=== PATIENT | female | born 1970 | race Caucasian/White ===

== ENCOUNTER 2019-11-19 09:47 | Outpatient (REF) | payer MEDICAID, SELFPAY ==
[2019-11-19 14:27] LABS: Microalbum/Creatinine Ratio Ur 8.4 ug/mg cr
[2019-11-19 14:44] LABS: Alanine Aminotransferase 18 U/L (0-31); Albumin Level 4.3 g/dL (3.5-5.0); Alkaline Phosphatase 120 U/L (39-117); Anion Gap 13 (12-20); Aspartate Amino Transferase 13 U/L (5-31); Blood Urea Nitrogen 13 mg/dL (9-16); Calcium 9.4 mg/dL (8.4-10.2); Carbon Dioxide 29 mmol/L (22-29); Chloride 100 mmol/L (96-108); Cholesterol 206 mg/dL; Estimated Glomerular Filt Rate > 60; Glucose Random 273 mg/dL (60-115); HDL Cholesterol 48 mg/dL; LDL Cholesterol Calculated 126 mg/dl; Potassium 4.2 mmol/l (3.3-5.1); Sodium 138 mmol/L (135-145); Total Protein 7.4 g/dL (6.5-8.0); Triglycerides 161 mg/dL
[2019-11-19 14:46] LABS: Free T4 (Free Thyroxine) 1.13 ng/dL (0.71-1.85); Thyroid Stimulating Hormone 0.56 mIU/mL (0.32-4.0); Vitamin D 25-OH Total 22.2 ng/mL (>30)
[2019-11-20 09:07] LABS: LDL Cholesterol Direct 130 mg/dL (<100)
[2019-11-20 21:26] LABS: DHEA Sulfate 116 mcg/dL (19-231); Sex Hormone Binding Globulin 38 nmol/L (17-124)
[2019-11-23 12:52] LABS: Testosterone, Free 1.1 pg/mL (0.1-6.4); Testosterone, Total 9 ng/dL (2-45)
== END 2019-11-19 09:48 | disposition home or self-care (01) ==
LOC: CF 09:47
PROVIDERS: PCP Internal Medicine; Referring Provider Internal Medicine; Visit Provider Internal Medicine
DX: E11.65 Type 2 diabetes mellitus with hyperglycemia (principal); Z79.4 Long term (current) use of insulin; E55.9 Vitamin D deficiency, unspecified; E78.5 Hyperlipidemia, unspecified; L65.9 Nonscarring hair loss, unspecified; I10 Essential (primary) hypertension
CPT/HCPCS: 80053; 80061; 82043; 82306; 82627; 82947; 83721; 84270; 84402; 84403; 84439; 84443; 99204

== ENCOUNTER → 2019-12-10 09:44 | Outpatient (BNVA) | payer MEDICAID, SELFPAY | PROVIDERS: PCP Internal Medicine; Referring Provider Internal Medicine; Visit Provider Dietitian, Registered | DX: Z76.89 Persons encountering health services in other specified circumstances (principal) ==

== ENCOUNTER → 2019-12-24 12:33 | Outpatient (BNVA) | payer MEDICAID, SELFPAY | PROVIDERS: Visit Provider Physician Assistant | DX: K21.9 Gastro-esophageal reflux disease without esophagitis (principal); R10.13 Epigastric pain; Z79.899 Other long term (current) drug therapy; Z83.71 Family history of colonic polyps | CPT/HCPCS: 99202 ==

== ENCOUNTER → 2020-01-15 09:45 | Outpatient (BNVA) | payer MEDICAID, SELFPAY | PROVIDERS: PCP Internal Medicine; Visit Provider Internal Medicine | DX: E11.65 Type 2 diabetes mellitus with hyperglycemia (principal); Z79.4 Long term (current) use of insulin; E78.5 Hyperlipidemia, unspecified; I10 Essential (primary) hypertension; E55.9 Vitamin D deficiency, unspecified; L65.9 Nonscarring hair loss, unspecified | CPT/HCPCS: 82947; 99212 ==

== ENCOUNTER 2020-01-16 10:18 | Day surgery (SDC) | payer MEDICAID, SELFPAY ==
--- NOTE | 2020-01-15 11:03 | HO.ANESPROP2 ---
HPI - Anesthesia Eval Consult details Narrative: 49yo F for Upper Endoscopy and Colonoscopy PMFSH Past Medical History Medical History (Updated 01/21/20 @ 10:29 by Halie Ribeiro, RD, LDN) Depression GERD (gastroesophageal reflux disease) HLD (hyperlipidemia) HTN (hypertension) T2DM (type 2 diabetes mellitus) Vitamin D deficiency Family History Family History Mother Heart disease Surgical History Surgical History Hx of cholecystectomy Hx of tubal ligation Social History Social History Smoking Status: Former smoker Advance Directives Date on File: 11/19/19 Meds Allergies Allergy/AdvReac Type Severity Reaction Status Date / Time No Known Drug Allergies Allergy Unknown None Verified 01/15/20 10:06 Environmental Allergy Unknown SNEEZING Uncoded 01/15/20 10:06 Home Medications Medication Instructions Recorded Confirmed Type cyclobenzaprine 5 mg tablet 5 mg PO BEDTIME 11/19/19 01/15/20 History gabapentin 100 mg capsule 100 mg PO BEDTIME 11/19/19 01/15/20 History insulin glargine 100 unit/mL (3 40 unit SUBCUT DAILY ml 11/19/19 01/15/20 History mL) subcutaneous pen lancets 28 gauge #100 ea 11/19/19 01/15/20 History omeprazole 20 mg capsule,delayed 20 mg PO DAILY 11/19/19 01/15/20 History release pen needle, diabetic 32 gauge x #50 ea 11/19/19 01/15/20 History 1/4 aspirin 81 mg tablet,delayed 81 mg PO DAILY 12/24/19 01/15/20 History release Exam Exam Date and Time: January 15, 2020 1103 Pertinent Lab Results Pertinent Lab Results: Laboratory Tests 09/07/19 11/19/19 18:28 11:57 WBC 9.4 Hgb 13.3 Hct 39.1 Plt Count 292 Sodium 138 Potassium 4.2 Chloride 100 Carbon Dioxide 29 BUN 13 Creatinine 0.71 Assessment and Plan Assessment Anesthesia Assessment: Chart Reviewed
[2020-01-16 10:51] VITALS: BMI 25.2
[2020-01-16 10:52] LABS: Glucose, Whole Blood 183 mg/dL (60-115)
[2020-01-16 11:07] VITALS: BP 122/78; PULSE 78; RESP 16; TEMP 36.2; O2SAT 99
[2020-01-16] MEDS: Lactated Ringers 1,000 ML 100 ML IVCONT (11:32)
--- NOTE | 2020-01-16 11:32 | PC.NURSE ---
explained deanne rubio with bilingual interpreter. bartolo well. output clear with some light sediment
--- NOTE | 2020-01-16 12:35 | HO.ANESPROP2 ---
[facility] Past Medical History Medical History (Updated 01/15/20 @ 11:04 by Guillermina Dunlap) Depression GERD (gastroesophageal reflux disease) HLD (hyperlipidemia) HTN (hypertension) T2DM (type 2 diabetes mellitus) Vitamin D deficiency Family History Family History Mother Heart disease Surgical History Surgical History Hx of cholecystectomy Hx of tubal ligation Social History Social History Smoking Status: Former smoker Smoked in Last 30 Days: No Use of substances other than those prescribed or required for medical reasons: No Advance Directives: No Advance Directives Information Provided: Yes Advance Directives Date on File: 11/19/19 Recently lost weight without trying: No Meds Allergies Allergy/AdvReac Type Severity Reaction Status Date / Time No Known Drug Allergies Allergy Unknown None Verified 01/15/20 10:06 Environmental Allergy Unknown SNEEZING Uncoded 01/15/20 10:06 Home Medications Medication Instructions Recorded Confirmed Type cyclobenzaprine 5 mg tablet 5 mg PO BEDTIME 11/19/19 01/15/20 History gabapentin 100 mg capsule 100 mg PO BEDTIME 11/19/19 01/15/20 History insulin glargine 100 unit/mL (3 40 unit SUBCUT DAILY ml 11/19/19 01/15/20 History mL) subcutaneous pen lancets 28 gauge #100 ea 11/19/19 01/15/20 History omeprazole 20 mg capsule,delayed 20 mg PO DAILY 11/19/19 01/15/20 History release pen needle, diabetic 32 gauge x #50 ea 11/19/19 01/15/20 History 1/4 aspirin 81 mg tablet,delayed 81 mg PO DAILY 12/24/19 01/15/20 History release Exam Exam Date and Time: January 16, 2020 1235 Height,Weight and Vital Signs: Height 4 ft 10 in Weight 54.885 kg Last Vital Signs Temp 97.1 F 01/16/20 11:07 Pulse 78 01/16/20 11:07 Resp 16 01/16/20 11:07 BP 122/78 01/16/20 11:07 Pulse Ox 99 01/16/20 11:07 Pertinent Lab Results Pertinent Lab Results: Laboratory Tests 01/16/20 10:48 POC Glucose 183 H Airway Mallampati Class: I TM Dist: >3cm Neck ROM: Full Loose/Missing/Broken Teeth: No Heart: RRR Lungs: CTA
--- NOTE | 2020-01-16 12:55 | MHC.SHP ---
Pre-Procedural Eval Section A The patient is an INPATIENT: No Changes since office visit: Yes Patient answered all questions; No Cold of Flu in the past 2 weeks, No New Medical Problems and No Changes in Medication Section B Chief Complaint: Screening,GERD Allergies: Allergies Allergy/AdvReac Type Severity Reaction Status Date / Time No Known Drug Allergies Allergy Unknown None Verified 01/15/20 10:06 Environmental Allergy Unknown SNEEZING Uncoded 01/15/20 10:06 Plan Patient has been examined and remains a candidate for the planned procedure
--- NOTE | 2020-01-16 12:56 | W.PM.OPN ---
Operative Note Operative Note Date of Service: 01/16/20 Narrative: Pre-op diagnosis: Colon cancer screening, Fh of colon polyps, GERD, abdominal pain Post-op diagnosis: other (GERD, Gastritis, colon polyp, diverticulosis) Procedure: FLEXIBLE TRANSORAL UPPER GASTROINTESTINAL ENDOSCOPY AND COLONOSCOPY PROCEDURE NOTE UPPER ENDOSCOPY Consent: Indications for the procedure and potential complications of bleeding, perforation, reaction to medications and missed diagnosis were discussed with the patient with the help of a educational interpreter and informed consent was obtained. Instrument: Olympus GIF H 190 mid size upper endoscope Monitoring: Vital signs and clinical assessment, continuous EKG monitoring, Pulse oximetry, Carbon Dioxide monitoring and blood pressure monitoring were done throughout the procedure. Procedure: The patient was placed in the left lateral decubitis position and pre-procedure medications were administered and a bite block was placed. The endoscope was inserted into the mouth and advanced under direct vision to the third part of duodenum. A careful inspection was made as the upper endoscope was withdrawn including a retroflexed examination of the proximal stomach; Findings and interventions are described below. Findings: Esophagus: GE junction at 35 cms. No esophagitis or Mcmillan's. Stomach: Mild gastric erythema. Biopsies were obtained. Grade 2 flap valve on retroflexed examination of the cardia. Duodenum: Normal bulb and descending duodenum. Biopsies were obtained from 3rd part of duodenum to check for celiac sprue. Intervention: Biopsies as noted above COLONOSCOPY PROCEDURE NOTE Consent: Indications for the procedure and potential complications of bleeding, perforation, reaction to medications and missed diagnosis were discussed with the patient and informed consent was obtained. Instrument: Olympus PCF H 190 L variable stiffness pediatric colonoscope Monitoring: Vital signs and clinical assessment, intermittent blood pressure monitoring, continuous EKG monitoring, Pulse oximetry and Carbon Dioxide monitoring were done throughout the procedure. Colon withdrawl time was 11 minutes. Procedure: The patient was placed in the left lateral decubitis position and pre-procedure medications were administered. After a digital rectal examination of the ano-rectum, the video colonoscope was inserted into the rectum and advanced through the colon to the cecum. The colonoscope was slowly withdrawn in a retrograde panoramic fashion and the colon mucosa was carefully examined including a retroflexed view of the rectum. Findings and interventions are described below. Procedure Difficulty: Without difficulty Findings: Terminal Ileum: Not evaluated Cecum: Normal Ascending Colon: Normal Transverse Colon: Normal Descending Colon: Normal Sigmoid Colon: A 5-6 mm diminutive appearing polyp - biopsied. Moderate diverticulosis Rectum: Normal Ano-rectum: Lax anal sphincter Colon preparation: Good after some irrigation. Impression and Post Procedure Diagnosis: Endoscopy Findings: STOMACH: mild gastritis DUODENUM: Normal - bxed to check for Celiac sprue. Colonoscopy Findings: One diminutive appearing polyp was biopsied. Moderate diverticulosis seen in the sigmoid colon Plan: Await pathology results Patient has an appointment on 01/29/20 in the GI Clinic with JOSÉ MANUEL Smyth. Repeat Colonoscopy interval based on path results - in 5 years if polyps are adenomatous and 10 years and due to FH of colon polyps. Above findings were reviewed with the patient and colon polyps and diverticulosis handouts were given in the discharge area Surgeon: Isaiah Carl MD Anesthesia: MAC ([facility]) Estimated blood loss (mL): 0 Pathology: other (A. Small bowel, B. Gastric antrum, C. SC polyp x 1) Condition: stable Disposition: PACU
[2020-01-16 14:02] VITALS: BP 84/48; PULSE 74; RESP 16; TEMP 36.1; O2SAT 100
[2020-01-16 14:17] VITALS: BP 93/56; PULSE 76; RESP 18; O2SAT 99
[2020-01-16 14:19] VITALS: BP 95/55; PULSE 76; RESP 16; O2SAT 98
--- NOTE | 2020-01-16 14:31 | HO.POSTANES ---
Post Anesthesia Evaluation Post Anesthesia Evaluation Vital Signs: Vital Signs Temp Pulse Resp BP Pulse Ox 01/16/20 14:19 76 16 95/55 L 98 01/16/20 14:17 76 18 93/56 L 99 01/16/20 14:02 97.0 F 74 16 84/48 L 100 01/16/20 11:07 97.1 F 78 16 122/78 99 Anesthesia: Monitored Mental Status: Awake Pain Control: Satisfactory Nausea/Vomiting: None Hydration: Adequate Anesthesia-Related Issues: No Anes. Related Issues
== END 2020-01-16 14:47 | disposition home or self-care (01) ==
PROVIDERS: PCP Internal Medicine; Visit Provider Internal Medicine Gastroenterology
PROC: (CPT 45380; principal; 2020-01-16 11:40)
DX: Z12.11 Encounter for screening for malignant neoplasm of colon (principal); K63.5 Polyp of colon; K57.30 Diverticulosis of large intestine without perforation or abscess without bleeding; K29.70 Gastritis, unspecified, without bleeding; K21.9 Gastro-esophageal reflux disease without esophagitis; E11.9 Type 2 diabetes mellitus without complications; Z79.4 Long term (current) use of insulin; Z83.71 Family history of colonic polyps
CPT/HCPCS: 45380; 43239; 82947; 88305; 88342; J3010

== ENCOUNTER → 2020-01-21 10:40 | Outpatient (BNVA) | payer MEDICAID, SELFPAY | PROVIDERS: PCP Internal Medicine; Referring Provider Internal Medicine; Visit Provider Dietitian, Registered | DX: Z76.89 Persons encountering health services in other specified circumstances (principal) ==

== ENCOUNTER → 2020-01-29 11:58 | Outpatient (BNVA) | payer MEDICAID, SELFPAY | PROVIDERS: PCP Internal Medicine; Visit Provider Physician Assistant | DX: Z76.89 Persons encountering health services in other specified circumstances (principal) ==

== ENCOUNTER 2020-03-26 10:43 | Emergency (ER) | payer MEDICAID, SELFPAY ==
[2020-03-26 11:07] VITALS: BP 177/106; PULSE 107; RESP 18; TEMP 36.9; O2SAT 98; BMI 25.0
[2020-03-26 11:42] VITALS: BP 156/93; PULSE 104; RESP 16; TEMP 36.9; O2SAT 97
[2020-03-26 11:52] LABS: Glucose, Whole Blood 251 mg/dL (60-115)
--- NOTE | 2020-03-26 12:09 | ED.GENADULT ---
HPI - General Adult General Chief complaint: Abdominal Pain Stated complaint: VOMITING Time Seen by Provider: 03/26/20 11:33 Source: patient Mode of arrival: ambulatory Limitations: language barrier (Patient's 1st language is Israeli, she does not speak Spanish, photographic spotter used to obtain information.) History of Present Illness HPI narrative: 50-year-old female who presents emergency department for evaluation of nausea, vomiting, abdominal pain and headache. The patient states that she was started on Victoza (Liraglutide) injections q.week 3 weeks prior. She states that each time she has injected herself she has felt sick after the injection. She states that she injected herself yesterday. 30 minutes after the injection she developed stomach pain which she describes as a bloating sensation. She tried to drink ja janneth but vomited. At 7:30 p.m. yesterday she began to vomit multiple times to the point where she was vomiting bile. She states that she has a constant pressure and her abdomen which is severe and is 10/10. She states that the pain feels similar to her gastritis but is much more severe. She denied fever, chills, shortness of breath, dyspnea on exertion, change in bowel movements. She states she gets chest pain with vomiting. She describes the chest pain is an intermittent tightness. The patient states that she is feeling weak and lightheaded. Related Data Home Medications Medication Instructions Recorded Confirmed cyclobenzaprine 5 mg tablet 5 mg PO BEDTIME 11/19/19 01/29/20 gabapentin 100 mg capsule 100 mg PO BEDTIME 11/19/19 01/29/20 insulin glargine 100 unit/mL (3 40 unit SUBCUT DAILY ml 11/19/19 01/29/20 mL) subcutaneous pen lancets 28 gauge #100 ea 11/19/19 01/29/20 omeprazole 20 mg capsule,delayed 20 mg PO DAILY 11/19/19 01/29/20 release pen needle, diabetic 32 gauge x #50 ea 11/19/19 01/29/20 1/ aspirin 81 mg tablet,delayed 81 mg PO DAILY 12/24/19 01/29/20 release Previous Rx's Medication Instructions Recorded lisinopril 2.5 mg tablet 2.5 mg PO DAILY 30 Days #30 tab 11/19/19 metformin 500 mg tablet,extended 1,000 mg PO BID 30 Days #120 tab 11/19/19 release 24 hr pen needle, diabetic 32 gauge x #100 ea 11/19/19 1/ sucralfate 100 mg/mL oral 10 ml PO BID #420 ml 12/24/19 suspension atorvastatin 80 mg tablet 80 mg PO BEDTIME 30 Days #30 tab 01/15/20 blood sugar diagnostic #100 ea 01/15/20 blood sugar diagnostic #100 ea 01/15/20 blood-glucose meter #1 ea 01/15/20 cholecalciferol (vitamin D3) 50 50 mcg PO DAILY 30 Days #30 cap 01/15/20 mcg (2,000 unit) capsule lancets 28 gauge #100 ea 01/15/20 liraglutide 0.6 mg/0.1 mL (18 mg/3 See Rx Instructions SUBCUT DAILY 01/15/20 mL) subcutaneous pen injector 30 Days #9 ml pantoprazole 20 mg tablet,delayed 20 mg PO BID #30 tab 01/29/20 release metoclopramide HCl [Reglan] 10 mg PO Q6H PRN #14 tab 03/26/20 metoclopramide HCl [Reglan] 10 mg PO Q6H PRN #14 tab 03/26/20 Allergies Allergy/AdvReac Type Severity Reaction Status Date / Time No Known Drug Allergies Allergy Unknown None Verified 01/15/20 10:06 Environmental Allergy Unknown SNEEZING Uncoded 01/15/20 10:06 Review of Systems Review of Systems: Yes all other systems are reviewed and are negative Neurologic: Reports Abnormal speech present [facility] Past Medical History [facility] Narrative: The patient denies tobacco, alcohol and drug use. Medical History Depression Gastritis HLD (hyperlipidemia) HTN (hypertension) T2DM (type 2 diabetes mellitus) Vitamin D deficiency Surgical History Hx of cholecystectomy Hx of tubal ligation Family History Family History Mother Heart disease Social History Social History Alcohol intake: current Alcohol intake frequency: holidays/special occasions only Smoking Status: Former smoker Smoked in Last 30 Days: No Use of substances other than those prescribed or required for medical reasons: No Advance Directives: Yes Advance Directives on File: Yes Advance Directives Date on File: 11/19/19 Physical Exam Vital Signs: Vital Signs: Last Vital Signs Temp 98.6 F 03/26/20 13:52 Pulse 98 03/26/20 13:52 Resp 16 03/26/20 13:52 BP 118/64 03/26/20 13:52 Pulse Ox 100 03/26/20 13:52 Body Mass Index 25.0 Const: General: cooperative Orientation/consciousness: oriented to person and oriented to place HENMT: Head: Yes normal to inspection, Yes normocephalic and Yes atraumatic Ears: external ears normal General nose exam: Normal external nose present Face and sinus: Yes normal facial exam Mouth: Normal oral and palatal mucosa present Throat: Yes posterior oropharynx normal Eyes: Periorbital: periorbital findings normal Eyelids: Yes eyelids normal Conjunctivae: conjunctivae normal Sclerae: sclerae normal Corneas: corneas normal Pupils: Equal, round and reactive pupils present Direct Ophthalmoscopy: normal light reflex Neck: Neck: Yes full ROM, Yes no lymphadenopathy, Yes no meningeal signs, Yes trachea midline and Yes supple Chest: Chest palpation & inspection: normal inspection of the chest and normal palpation of entire chest wall Resp: Effort & Inspection: normal respiratory effort and able to speak in complete sentences Auscultation: clear to auscultation bilaterally Cardio: Rate: regular rate Rhythm: regular rhythm Heart sounds: S1 normal heart sound present, S2 normal heart sound present and no murmurs GI: Inspection: Yes normal to inspection Palpation (GI): Soft to palpation, Tenderness to palpation present (GI) in the epigastrum (Moderate), no guarding, not rigid and No hepatosplenomegaly present : General: Yes no CVA tenderness Back/Spine/Pelvis: Back: no CVA tenderness Cervical Spine: normal cervical lordosis Thoracic/Lumbar Spine: thoracic and lumbar spine normal to inspection Skin: Lesions: no lesions Rashes: no rashes Wounds: no wounds Neuro: General: oriented to person, oriented to place and no meningeal signs Cranial nerves: Yes CN's II-XII intact bilaterally and Yes Equal, round and reactive pupils present Cognition (Neuro): normal cognition Speech: Abnormal speech present Motor exam (neuro): 5/5 motor strength present throughout Extrem: General: Yes normal to inspection and Yes full ROM Psych: Appearance: well kempt Mental Status: mental status grossly normal Speech and movement: Normal speech and movement present Affect: normal affect Attitude: cooperative Thought process: Normal thought process present Thought content: Normal thought content present Course Course Course Narrative: 50-year-old female who presents emergency for evaluation of nausea, vomiting, abdominal pain and headache which started after she injected herself with Victoza. Patient was started on Victoza 3 weeks prior and this is her 3rd weekly injection. She states that after each injection she has had the same symptoms however though his symptoms are worse. Physical examination did reveal midepigastric tenderness otherwise was unremarkable. The patient was ordered to get Reglan 10 mg IV, Benadryl 50 mg IV and Toradol 30 mg IV to treat her abdominal pain and her headache. She was also ordered to get normal saline x1 L to treat dehydration. I did order laboratory evaluation on the patient as well. 1603: The patient is feeling significant better after the above treatment. Her symptoms have completely resolved. Her laboratory evaluation revealed an elevated glucose of 279, elevated alk-phos of 121 elevated total protein of 9.0 an elevated albumin of 5.1 otherwise labs are unremarkable. At this time, I suspect the patient's symptoms are secondary to Victoza. I advised the patient to stop this medication and discuss alternative treatments with her doctor. The patient was given a prescription for Reglan 10 mg every 8 hours as needed for nausea and vomiting. She was advised to take Benadryl 50 mg orally and Tylenol 1000 mg orally when she takes the Reglan. She was given verbal and printed instructions and discharged home. Medical Decision Making Lab Data Result diagrams: 03/26/20 12:22 03/26/20 12:22 Labs: Lab Results 03/26/20 03/26/20 03/26/20 Range/Units 11:48 12:21 12:21 WBC (4.8-10.8) X10*3/uL RBC (4.20-5.50) X10*6/uL Hgb (12.0-16.0) g/dl Hct (37-47) % MCV (80-98) fL MCH (27.0-33.0) pg MCHC (31.0-35.0) g/dl RDW (11.0-16.0) % Plt Count (160-400) X10*3/uL MPV (9.4-12.3) fL Immature Gran % (Auto) (0.0-0.4) % Neut % (Auto) (45-73) % Lymph % (Auto) (20-40) % [place] % (Auto) (2-11) % Eos % (Auto) (0-4) % Baso % (Auto) (0-2) % Lymph # (Auto) (1.2-4.9) X10*3/uL [place] # (Auto) (0.1-1.2) X10*3/uL Eos # (Auto) (0.0-0.4) X10*3/uL Baso # (Auto) (0.0-0.2) X10*3/uL Abs Immat Gran (auto) (0.00-0.03) X10*3/uL Absolute Neuts (auto) (2.0-8.3) X10*3/uL Absolute Nucleated RBC (0.0-0.012) X10*3/uL Nucleated RBC % (auto) (0.0-0.2) /100WBC Sodium (135-145) mmol/L Potassium (3.3-5.1) mmol/L Chloride (96-108) mmol/L Carbon Dioxide (22-29) mmol/L Anion Gap (12-20) BUN (9-16) mg/dL Creatinine (0.5-1.4) mg/dL Estim Creat Clear Calc Estimated GFR POC Glucose 251 H (60-115) mg/dL Random Glucose (60-115) mg/dL Lactic Acid 1.8 (0.5-2.0) mmol/L Calcium (8.4-10.2) mg/dL Total Bilirubin (0.0-1.0) mg/dL AST (5-31) U/L ALT (0-31) U/L Alkaline Phosphatase (39-117) U/L Total Protein (6.5-8.0) g/dL Albumin (3.5-5.0) g/dL Lipase (8-78) U/L Urine Color YELLOW Urine Appearance CLEAR Urine pH 6.0 (5.0-8.0) Ur Specific [place] >= 1.030 H (1.005-1.025) Urine Protein TRACE (NEG-TRACE) MG/DL Urine Glucose (UA) >=1000 H (NEG) MG/DL Urine Ketones >=80 (NEG) MG/DL Urine Blood NEG (NEG) Urine Nitrite NEG (NEG) Ur Leukocyte Esterase NEG (NEG) Urine RBC 0 (0) /HPF Urine WBC 1-4 (0-4) /HPF Ur Squamous Epith Cells 1+ /LPF Urine Bacteria TRACE /LPF 03/26/20 03/26/20 Range/Units 12:22 12:22 WBC 9.6 (4.8-10.8) X10*3/uL RBC 5.15 (4.20-5.50) X10*6/uL Hgb 14.9 (12.0-16.0) g/dl Hct 44.1 (37-47) % MCV 85.6 (80-98) fL MCH 28.9 (27.0-33.0) pg MCHC 33.8 (31.0-35.0) g/dl RDW 12.2 (11.0-16.0) % Plt Count 359 (160-400) X10*3/uL MPV 9.9 (9.4-12.3) fL Immature Gran % (Auto) 0.2 (0.0-0.4) % Neut % (Auto) 82.8 H (45-73) % Lymph % (Auto) 14.6 L (20-40) % [place] % (Auto) 2.2 (2-11) % Eos % (Auto) 0.0 (0-4) % Baso % (Auto) 0.2 (0-2) % Lymph # (Auto) 1.4 (1.2-4.9) X10*3/uL [place] # (Auto) 0.2 (0.1-1.2) X10*3/uL Eos # (Auto) 0.0 (0.0-0.4) X10*3/uL Baso # (Auto) 0.0 (0.0-0.2) X10*3/uL Abs Immat Gran (auto) 0.02 (0.00-0.03) X10*3/uL Absolute Neuts (auto) 8.0 (2.0-8.3) X10*3/uL Absolute Nucleated RBC 0.000 (0.0-0.012) X10*3/uL Nucleated RBC % (auto) 0.0 (0.0-0.2) /100WBC Sodium 139 (135-145) mmol/L Potassium 4.4 (3.3-5.1) mmol/L Chloride 98 (96-108) mmol/L Carbon Dioxide 27 (22-29) mmol/L Anion Gap 18 (12-20) BUN 16 (9-16) mg/dL Creatinine 0.80 (0.5-1.4) mg/dL Estim Creat Clear Calc 61.5 Estimated GFR > 60 POC Glucose (60-115) mg/dL Random Glucose 279 H (60-115) mg/dL Lactic Acid (0.5-2.0) mmol/L Calcium 10.3 H D (8.4-10.2) mg/dL Total Bilirubin 1.3 H (0.0-1.0) mg/dL AST 23 D (5-31) U/L ALT 20 (0-31) U/L Alkaline Phosphatase 121 H (39-117) U/L Total Protein 9.0 H D (6.5-8.0) g/dL Albumin 5.1 H (3.5-5.0) g/dL Lipase 10 (8-78) U/L Urine Color Urine Appearance Urine pH (5.0-8.0) Ur Specific [place] (1.005-1.025) Urine Protein (NEG-TRACE) MG/DL Urine Glucose (UA) (NEG) MG/DL Urine Ketones (NEG) MG/DL Urine Blood (NEG) Urine Nitrite (NEG) Ur Leukocyte Esterase (NEG) Urine RBC (0) /HPF Urine WBC (0-4) /HPF Ur Squamous Epith Cells /LPF Urine Bacteria /LPF Discharge Plan Discharge Clinical Impression: Abdominal pain Qualifiers: Abdominal location: epigastric Qualified Code(s): R10.13 - Epigastric pain Vomiting Qualifiers: Vomiting type: bilious vomiting Nausea presence: with nausea Qualified Code(s): R11.14 - Bilious vomiting Adverse drug reaction Qualifiers: Encounter type: initial encounter Qualified Code(s): T50.905A - Adverse effect of unspecified drugs, medicaments and biological substances, initial encounter Patient Disposition: Home, Self-Care Instructions: Gastritis (ED) Additional Instructions: Your laboratory evaluation was unremarkable. I believe that your symptoms were caused by the Victoza. I recommend that you stop this medication and discuss alternative treatments with your doctor. If you continue to have nausea, vomiting and abdominal pain take the following 3 medications together every 8 hours as needed. Reglan 10 mg, 1 pill orally Benadryl 25 mg, 2 pills orally Extra-strength Tylenol 500 mg pills, 2 pills orally Follow-up with your doctor in 2 days. Please return to the emergency department if your symptoms get worse or if you develop any symptoms that are concerning to you. Prescriptions: New metoclopramide HCl [Reglan] 10 mg tablet 10 mg PO Q6H PRN (Reason: nausea and vomiting) Qty: 14 RF: 0 metoclopramide HCl [Reglan] 10 mg tablet 10 mg PO Q6H PRN (Reason: nausea and vomiting) Qty: 14 RF: 0 No Action sucralfate [Carafate] 100 mg/mL suspension 10 ml PO BID Qty: 420 RF: 0 aspirin 81 mg tablet,delayed release (DR/EC) 81 mg PO DAILY RF: 0 pantoprazole 20 mg tablet,delayed release (DR/EC) 20 mg PO BID Qty: 30 RF: 6 omeprazole 20 mg capsule,delayed release(DR/EC) 20 mg PO DAILY RF: 0 (DME) lancets [FreeStyle Lancets] 28 gauge misc See Rx Instructions .ROUTE .MEDSUPPLY Qty: 100 RF: 0 (DME) pen needle, diabetic [Comfort EZ Pen [place]] 32 gauge x 1/4 needle See Rx Instructions .ROUTE .MEDSUPPLY Qty: 50 RF: 0 cyclobenzaprine 5 mg tablet 5 mg PO BEDTIME RF: 0 gabapentin 100 mg capsule 100 mg PO BEDTIME RF: 0 metformin 500 mg tablet extended release 24 hr 1,000 mg PO BID 30 Days Qty: 120 RF: 11 lisinopril 2.5 mg tablet 2.5 mg PO DAILY 30 Days Qty: 30 RF: 11 Lantus Solostar U-100 Insulin 100 unit/mL (3 mL) insulin pen 40 unit subcut DAILY RF: 0 (DME) pen needle, diabetic [BD Ultra-Fine Micro Pen Needle] 32 gauge x 1/4 needle See Rx Instructions .ROUTE .MEDSUPPLY Qty: 100 RF: 11 (DME) FreeStyle Lite Strips Strip See Rx Instructions .ROUTE .MEDSUPPLY Qty: 100 RF: 11 (DME) lancets [FreeStyle Lancets] 28 gauge misc See Rx Instructions .ROUTE .MEDSUPPLY Qty: 100 RF: 0 (DME) blood-glucose meter [FreeStyle Lite Meter] Kit See Rx Instructions .ROUTE .MEDSUPPLY Qty: 1 RF: 0 (DME) FreeStyle Lite Strips Strip See Rx Instructions .ROUTE .MEDSUPPLY Qty: 100 RF: 11 atorvastatin 80 mg tablet 80 mg PO BEDTIME 30 Days Qty: 30 RF: 11 cholecalciferol (vitamin D3) 50 mcg (2,000 unit) capsule 50 mcg PO DAILY 30 Days Qty: 30 RF: 11 Victoza 3-Evangelist 0.6 mg/0.1 mL (18 mg/3 mL) pen injector See Rx Instructions subcut DAILY 30 Days Qty: 9 RF: 11
[2020-03-26] MEDS: 0.9 % Sodium Chloride 1,000 ML 999 ML IV (12:31)
[2020-03-26 12:37] LABS: MANUAL DIFF FLAG NO
[2020-03-26 12:38] LABS: Basophils Percent Auto 0.2 % (0-2); Hematocrit 44.1 % (37-47); Hemoglobin 14.9 g/dl (12.0-16.0); Imm Gran Abs Auto 0.02 X10*3/uL (0.00-0.03); Imm Gran Pct Auto 0.2 % (0.0-0.4); Lymphocytes Absolute Auto 1.4 X10*3/uL (1.2-4.9); Lymphocytes Percent Auto 14.6 % (20-40); Mean Corpuscular HGB Conc 33.8 g/dl (31.0-35.0); Mean Corpuscular Hemoglobin 28.9 pg (27.0-33.0); Mean Corpuscular Volume 85.6 fL (80-98); Mean Platelet Volume 9.9 fL (9.4-12.3); Monocytes Absolute Auto 0.2 X10*3/uL (0.1-1.2); Monocytes Percent Auto 2.2 % (2-11); Neutrophils Percent Auto 82.8 % (45-73); Platelet Count 359 X10*3/uL (160-400); Red Blood Count 5.15 X10*6/uL (4.20-5.50); Red Cell Distribution Width 12.2 % (11.0-16.0); White Blood Count 9.6 X10*3/uL (4.8-10.8)
[2020-03-26 12:54] LABS: Glucose Urine UA >=1000 MG/DL (NEG); Leukocyte Esterase Urine NEG (NEG); Nitrite Urine NEG (NEG); Specific Gravity - Urine >= 1.030 (1.005-1.025); Urine Blood NEG (NEG); Urine Ketones >=80 MG/DL (NEG); Urine Protein TRACE MG/DL (NEG-TRACE)
[2020-03-26 13:01] LABS: Appearance Urine CLEAR; Color Urine YELLOW
[2020-03-26] MEDS: Ketorolac Tromethamine 30 MG/ML VIAL IVPUSH (13:01)
[2020-03-26] MEDS: diphenhydrAMINE HCL 50 MG/ML VIAL IVPUSH (13:03)
[2020-03-26] MEDS: Metoclopramide HCl 10 MG/2 ML VIAL IVPUSH (13:03)
[2020-03-26 13:04] LABS: Lactic Acid 1.8 mmol/L (0.5-2.0)
[2020-03-26 13:09] LABS: Alanine Aminotransferase 20 U/L (0-31); Albumin Level 5.1 g/dL (3.5-5.0); Alkaline Phosphatase 121 U/L (39-117); Anion Gap 18 (12-20); Aspartate Amino Transferase 23 U/L (5-31); Bilirubin Total 1.3 mg/dL (0.0-1.0); Blood Urea Nitrogen 16 mg/dL (9-16); Calcium 10.3 mg/dL (8.4-10.2); Carbon Dioxide 27 mmol/L (22-29); Chloride 98 mmol/L (96-108); Creatinine Clr Calc Pharmacy 61.5; Estimated Glomerular Filt Rate > 60; Glucose Random 279 mg/dL (60-115); Lipase 10 U/L (8-78); Potassium 4.4 mmol/L (3.3-5.1); Sodium 139 mmol/L (135-145)
[2020-03-26 13:15] LABS: RBC Urine 0 /HPF (0); Squamous Epithelial Cell Urine 1+ /LPF
[2020-03-26 13:16] LABS: Bacteria Urine TRACE /LPF
[2020-03-26 13:52] VITALS: BP 118/64; PULSE 98; RESP 16; TEMP 37; O2SAT 100
[2020-03-26 16:00] VITALS: BP 128/64; PULSE 88; RESP 16; TEMP 37; O2SAT 100
== END 2020-03-26 16:57 | disposition home or self-care (01) ==
PROVIDERS: Emergency Provider Emergency Medicine Emergency Medical Services
DX: R10.13 Epigastric pain (principal); R11.14 Bilious vomiting; E11.9 Type 2 diabetes mellitus without complications; I10 Essential (primary) hypertension; Z79.4 Long term (current) use of insulin
CPT/HCPCS: 36415; 80053; 81001; 81003; 82947; 83605; 83690; 85025; 96361; 96374; 96375; 99284; J1200; J1885; J2765

== ENCOUNTER → 2020-04-02 11:25 | Outpatient (BNVA) | payer MEDICAID, SELFPAY | PROVIDERS: Visit Provider Dietitian, Registered ==

== ENCOUNTER → 2020-04-30 09:52 | Outpatient (BNVA) | payer MEDICAID, SELFPAY | PROVIDERS: Visit Provider Dietitian, Registered ==

== ENCOUNTER → 2020-05-13 07:48 | Outpatient (BNVA) | payer MEDICAID, SELFPAY | PROVIDERS: Visit Provider Physician Assistant ==

== ENCOUNTER → 2020-05-26 12:59 | Outpatient (BNVA) | payer MEDICAID, SELFPAY | PROVIDERS: PCP Internal Medicine; Visit Provider Orthopaedic Surgery | DX: R20.0 Anesthesia of skin (principal); R20.2 Paresthesia of skin; M65.331 Trigger finger, right middle finger | CPT/HCPCS: 20550; 99202; J1100 ==

== ENCOUNTER 2020-07-07 09:13 | Outpatient (REF) | payer MEDICAID, SELFPAY ==
--- NOTE | 2020-07-07 09:30 | EMG_ITS ---
This is a 50-year-old woman with a history of diabetes since 2005, on metformin and insulin, who comes in with 1-year history of bilateral upper extremity pain, tingling, numbness, and cold feeling with the right hand being worse than the left. She sometimes drops things. PHYSICAL EXAMINATION: On examination, she is alert and oriented with normal intellectual functions. Cranial nerves II through XII are normal. Muscle tone and strength are normal in all 4 extremities. No Tinel or Phalen sign. IMPRESSION: Rule out carpal tunnel syndrome. Nerve conduction EMG study: Mild carpal tunnel syndrome bilaterally, slightly worse on the right. Normal EMG of the right C5-T1 innervated muscles. MD VILMA Ervin/SHALONDA / [id number]
== END 2020-07-07 09:14 | disposition home or self-care (01) ==
LOC: HO.NEURO 09:13
PROVIDERS: PCP Internal Medicine; Visit Provider Internal Medicine
DX: R20.0 Anesthesia of skin (principal)
CPT/HCPCS: 95885; 95913

== ENCOUNTER 2020-07-14 10:35 | Outpatient (REF) | payer MEDICAID, SELFPAY ==
--- NOTE | ~2020-07-14 | MM_ITS ---
EXAMINATION: MM SCREENING DIGITAL BREAST TOMOSYNTHESIS, BILATERAL CLINICAL INFORMATION: Screening. Asymptomatic. The lifetime risk of breast cancer based on the Tyrer-Cuzick Model is 7%. COMPARISON: Mammography: 12/27/2017, 06/13/2012 TECHNIQUE: Digital breast tomosynthesis is performed in both the craniocaudal and mediolateral oblique views along with computer-aided detection (CAD). Synthesized 2D images are generated from the tomosynthesis. FINDINGS: There are scattered areas of fibroglandular density (ACR BI-RADS breast composition Category b). There are no significant masses, abnormal calcifications, or other abnormalities. Parenchymal pattern is similar to prior studies. No developing density. The axilla and skin contours are unremarkable. MM/MM tomosynthesis screening BI IMPRESSION: No mammographic evidence of malignancy. ASSESSMENT: BI-RADS 1: Negative RECOMMENDATION: Routine annual mammography screening. This patient's information was entered into a reminder system with a target due date for their next mammogram.
== END 2020-07-14 10:36 | disposition home or self-care (01) ==
LOC: HO.MAMMO 10:35
PROVIDERS: Visit Provider Internal Medicine
DX: Z12.31 Encounter for screening mammogram for malignant neoplasm of breast (principal)
CPT/HCPCS: 77063; 77067

== ENCOUNTER → 2020-07-21 10:03 | Outpatient (BNVA) | payer MEDICAID, SELFPAY | PROVIDERS: PCP Internal Medicine; Visit Provider Internal Medicine | DX: E11.65 Type 2 diabetes mellitus with hyperglycemia (principal); Z79.4 Long term (current) use of insulin | CPT/HCPCS: 82947; 83036; 99212 ==

== ENCOUNTER 2020-07-21 10:41 | Emergency (ER) | payer MEDICAID, SELFPAY ==
--- NOTE | 2020-07-21 | ECG_ITS ---
Test Reason : CHEST PAIN Blood Pressure : / mmHG Vent. Rate : 094 BPM Atrial Rate : 094 BPM P-R Int : 122 ms QRS Dur : 064 ms QT Int : 360 ms P-R-T Axes : 018 019 030 degrees QTc Int : 450 ms Normal sinus rhythm Normal ECG When compared to the previous EKG of No significant changes seen Referred By: Generic ED Physician Electronically Signed By:KRYSTAL DIMAS MD
--- NOTE | ~2020-07-21 | XR_ITS ---
EXAMINATION: XR CHEST CLINICAL INFORMATION: Chest pain. COMPARISON: Chest x-ray 09/07/2019 TECHNIQUE: Frontal view of the chest was obtained. FINDINGS: No significant abnormality is noted involving the heart, lungs, mediastinum, bony thorax or soft tissues. XR/XR chest 1V IMPRESSION: No acute cardiopulmonary process seen.
[2020-07-21 11:29] VITALS: BP 142/92; PULSE 86; RESP 16; TEMP 36.7; O2SAT 98; BMI 25.4
--- NOTE | 2020-07-21 14:02 | ED_ITS ---
HPI - General Adult General Chief complaint: General Medical Stated complaint: Chest Pain Time Seen by Provider: 07/21/20 14:00 Source: patient and cushion sewer Mode of arrival: ambulatory (sent from endocrinology office) Limitations: no limitations History of Present Illness HPI narrative: 50 yo female GERD, depression, HLD, HTN, IDDM - does not check blood sugars, on metformin BID but doesn't take the afternoon dose because it makes her nauseated, 40 units of lantus at night, sent by Endocrinology offices for CP since yesterday and blood sugars in 500s also c/o vague chest and shoulder pain that is sharp and reproduceable since yesterday MD complaint: elevated blood sugar, chest pain Onset (ago): day(s) (unknown how high sugar has been she doesn't check it cp since yesterday) Location: chest Radiation: non-radiation Severity: mild Quality: stabbing Pain Consistency: constant Relieving factors: none Exacerbating factors: none Associated symptoms: denies other symptoms Treatments prior to arrival: none Related Data Home Medications Medication Instructions Recorded Confirmed gabapentin 100 mg capsule 100 mg PO BEDTIME 11/19/19 07/21/20 insulin glargine 100 unit/mL (3 40 unit SUBCUT DAILY ml 11/19/19 07/21/20 mL) subcutaneous pen lancets 28 gauge #100 ea 11/19/19 07/21/20 omeprazole 20 mg capsule,delayed 20 mg PO DAILY 11/19/19 07/21/20 release pen needle, diabetic 32 gauge x #50 ea 11/19/19 07/21/2002/15 aspirin 81 mg tablet,delayed 81 mg PO DAILY 12/24/19 07/21/20 release Previous Rx's Medication Instructions Recorded lisinopril 2.5 mg tablet 2.5 mg PO DAILY 30 Days #30 tab 11/19/19 metformin 500 mg tablet,extended 1,000 mg PO BID 30 Days #120 tab 11/19/19 release 24 hr pen needle, diabetic 32 gauge x #100 ea 11/19/1902/15 atorvastatin 80 mg tablet 80 mg PO BEDTIME 30 Days #30 tab 01/15/20 blood sugar diagnostic #100 ea 01/15/20 blood-glucose meter #1 ea 01/15/20 cholecalciferol (vitamin D3) 50 50 mcg PO DAILY 30 Days #30 cap 12/03/20 mcg (2,000 unit) capsule pantoprazole 20 mg tablet,delayed 20 mg PO BID #30 tab 01/29/20 release metoclopramide HCl [Reglan] 10 mg PO Q6H PRN #14 tab 03/26/20 metoclopramide HCl [Reglan] 10 mg PO Q6H PRN #14 tab 03/26/20 lancets 33 gauge 1 gauge MISCELLANEOUS QID 30 Days 05/24/20 #100 ea cyclobenzaprine 10 mg PO TID PRN #14 tab 07/21/20 Allergies Allergy/AdvReac Type Severity Reaction Status Date / Time liraglutide [From Victoza] AdvReac Severe Vomiting Verified 07/21/20 11:38 Environmental Allergy Unknown SNEEZING Uncoded 07/21/20 11:38 Review of Systems Review of Systems: Constitutional : No Weight loss, No Fever, No Chills ENT/Mouth : No sore throat, No Rhinorrhea Eyes: No Eye Pain, No Swelling Cardiovascular : pos Chest Pain, no SOB, no Dyspnea on Exertion, No Orthopnea, No Edema, No Palpitations Respiratory : No Cough, No Sputum Gastrointestinal : no Nausea, No Vomiting, No Diarrhea, No abdominal Pain, No Hematochezia, No Melena Genitourinary : No Dysuria, No Urinary Frequency Musculoskeletal : No joint pain, No Myalgias, No Joint Swelling Skin : No Skin Lesions, No rash Neuro : No Weakness, No Numbness, No Dizziness, No Headache Psych : No Anxiety/Panic, No Depression Heme/Lymph: No Bruising, No Lymphadenopathy Endocrine : No Polyuria, No Polydipsia All other systems reviewed and are negative PMFSH Past Medical History Attestation statement: The following information was validated with the patient. Medical History Depression Gastritis HLD (hyperlipidemia) HTN (hypertension) T2DM (type 2 diabetes mellitus) Vitamin D deficiency Surgical History Hx of cholecystectomy Hx of tubal ligation Family History Family History Mother Heart disease Social History Social History (Updated 07/21/20 @ 14:46 by Jocelynn Kurtz DO) Household Members: Spouse Alcohol intake: current Alcohol intake frequency: holidays/special occasions only Patient Tobacco Use Status: Never used Tobacco Advance Directives: Yes Advance Directives on File: Yes Advance Directives Date on File: 11/19/19 Patient : No Current occupational status: employed 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 Oriented X3. No acute distress. Eyes: Pupils equal, round and reactive to light. ENT: Pharynx normal. Neck: Normal inspection. Neck supple. CVS: Normal heart rate and rhythm. Pulses normal. Chest: ttp along sternum and bilateral trapezius Respiratory: No respiratory distress. Breath sounds normal. Abdomen: Soft and nontender. Skin: Skin warm and dry. Normal skin color. Normal skin turgor. Extremities: No lower extremity edema. No calf ttp Neuro: Oriented X 3. No motor deficit. No sensory deficit. Course Course Course Narrative: EKG troponin negative with over 6 hours of symptoms ddimer negative not in DKA< blood sugar is 186 stable for DC at this time Medical Decision Making MDM Narrative Medical decision making narrative: 50 yo female GERD, depression, HLD, HTN, IDDM - does not check blood sugars, on metformin BID but doesn't take the afternoon dose because it makes her nauseated, 40 units of lantus at night, sent by Endocrinology offices for CP since yesterday and blood sugars in 500s also c/o vague chest and shoulder pain that is sharp and reproduceable since yesterday at this time the pateint will need labs, troponin x 1, ddimer , DKA workup the patient is not toxic of note she is not compliant with her medications and does not check her blood sugars since she is not taking her afternoon metformin she may need increase in her lantus to 50 units at night since that is the easies for her to comply with. Lab Data Result diagrams: 07/21/20 14:23 07/21/20 14:23 Labs: Lab Results 07/21/20 07/21/20 07/21/20 Range/Units 14:23 14:23 14:23 WBC 7.5 (4.8-10.8) X10*3/uL RBC 4.72 (4.20-5.50) X10*6/uL Hgb 13.7 (12.0-16.0) g/dl Hct 40.6 (37-47) % MCV 86.0 (80-98) fL MCH 29.0 (27.0-33.0) pg MCHC 33.7 (31.0-35.0) g/dl RDW 12.0 (11.0-16.0) % Plt Count 326 (160-400) X10*3/uL MPV 9.6 (9.4-12.3) fL Immature Gran % (Auto) 0.1 (0.0-0.4) % Neut % (Auto) 40.6 L (45-73) % Lymph % (Auto) 51.3 H (20-40) % [place] % (Auto) 6.4 (2-11) % Eos % (Auto) 1.3 (0-4) % Baso % (Auto) 0.3 (0-2) % Lymph # (Auto) 3.8 (1.2-4.9) X10*3/uL [place] # (Auto) 0.5 (0.1-1.2) X10*3/uL Eos # (Auto) 0.1 (0.0-0.4) X10*3/uL Baso # (Auto) 0.0 (0.0-0.2) X10*3/uL Abs Immat Gran (auto) 0.01 (0.00-0.03) X10*3/uL Absolute Neuts (auto) 3.0 (2.0-8.3) X10*3/uL Absolute Nucleated RBC 0.000 (0.0-0.012) X10*3/uL Nucleated RBC % (auto) 0.0 (0.0-0.2) /100WBC D-Dimer < 200 NG/ML VBG pH (7.32-7.43) VBG pCO2 mmHg VBG pO2 mmHg VBG HCO3 (22-26) mmol/L VBG O2 Saturation % VBG Base Excess mmol/L Sodium 136 (135-145) mmol/L Potassium 3.9 (3.3-5.1) mmol/L Chloride 101 (96-108) mmol/L Carbon Dioxide 28 (22-29) mmol/L Anion Gap 11 L (12-20) BUN 12 (9-16) mg/dL Creatinine 0.66 (0.5-1.4) mg/dL Estim Creat Clear Calc 78.5 Estimated GFR > 60 Random Glucose 186 H (60-115) mg/dL Calcium 9.8 (8.4-10.2) mg/dL Magnesium 1.9 (1.6-2.6) mg/dL Total Bilirubin 0.9 (0.0-1.0) mg/dL Direct Bilirubin 0.3 (0.0-0.5) mg/dL AST 14 (5-31) U/L ALT 10 (0-31) U/L Alkaline Phosphatase 111 (39-117) U/L Troponin I High Sens (<3.5-17.0) ng/L Total Protein 7.5 (6.5-8.0) g/dL Albumin 4.3 (3.5-5.0) g/dL Lipase 14 (8-78) U/L Urine Color Urine Appearance Urine pH (5.0-8.0) Ur Specific [place] (1.005-1.025) Urine Protein (NEG-TRACE) MG/DL Urine Glucose (UA) (NEG) MG/DL Urine Ketones (NEG) MG/DL Urine Blood (NEG) Urine Nitrite (NEG) Ur Leukocyte Esterase (NEG) Urine RBC (0) /HPF Urine WBC (0-4) /HPF Ur Squamous Epith Cells /LPF Ur Renal Epithelial Cell /LPF Urine Bacteria /LPF Urine Mucus /LPF 07/21/20 07/21/20 07/21/20 Range/Units 14:26 14:30 15:29 WBC (4.8-10.8) X10*3/uL RBC (4.20-5.50) X10*6/uL Hgb (12.0-16.0) g/dl Hct (37-47) % MCV (80-98) fL MCH (27.0-33.0) pg MCHC (31.0-35.0) g/dl RDW (11.0-16.0) % Plt Count (160-400) X10*3/uL MPV (9.4-12.3) fL Immature Gran % (Auto) (0.0-0.4) % Neut % (Auto) (45-73) % Lymph % (Auto) (20-40) % [place] % (Auto) (2-11) % Eos % (Auto) (0-4) % Baso % (Auto) (0-2) % Lymph # (Auto) (1.2-4.9) X10*3/uL [place] # (Auto) (0.1-1.2) X10*3/uL Eos # (Auto) (0.0-0.4) X10*3/uL Baso # (Auto) (0.0-0.2) X10*3/uL Abs Immat Gran (auto) (0.00-0.03) X10*3/uL Absolute Neuts (auto) (2.0-8.3) X10*3/uL Absolute Nucleated RBC (0.0-0.012) X10*3/uL Nucleated RBC % (auto) (0.0-0.2) /100WBC D-Dimer NG/ML VBG pH 7.30 L (7.32-7.43) VBG pCO2 58 mmHg VBG pO2 38 mmHg VBG HCO3 29 H (22-26) mmol/L VBG O2 Saturation 64.0 % VBG Base Excess 1.5 mmol/L Sodium (135-145) mmol/L Potassium (3.3-5.1) mmol/L Chloride (96-108) mmol/L Carbon Dioxide (22-29) mmol/L Anion Gap (12-20) BUN (9-16) mg/dL Creatinine (0.5-1.4) mg/dL Estim Creat Clear Calc Estimated GFR Random Glucose (60-115) mg/dL Calcium (8.4-10.2) mg/dL Magnesium (1.6-2.6) mg/dL Total Bilirubin (0.0-1.0) mg/dL Direct Bilirubin (0.0-0.5) mg/dL AST (5-31) U/L ALT (0-31) U/L Alkaline Phosphatase (39-117) U/L Troponin I High Sens < 3.5 (<3.5-17.0) ng/L Total Protein (6.5-8.0) g/dL Albumin (3.5-5.0) g/dL Lipase (8-78) U/L Urine Color YELLOW Urine Appearance CLEAR Urine pH 6.0 (5.0-8.0) Ur Specific [place] 1.020 (1.005-1.025) Urine Protein NEG (NEG-TRACE) MG/DL Urine Glucose (UA) >=1000 H (NEG) MG/DL Urine Ketones NEG (NEG) MG/DL Urine Blood NEG (NEG) Urine Nitrite NEG (NEG) Ur Leukocyte Esterase NEG (NEG) Urine RBC 0 (0) /HPF Urine WBC 0 (0-4) /HPF Ur Squamous Epith Cells 1+ /LPF Ur Renal Epithelial Cell TRACE /LPF Urine Bacteria NONE /LPF Urine Mucus TRACE /LPF ECG Data Attestation: I personally reviewed and interpreted this ECG as follows: Interpretation: Rate: 94 Rhythm: NSR [place]: normal Normal P waves. Normal ANDERS. Normal QRS complex. ST T wave : inverted V1-V2, III, no LUZ qTC: normal prior studies: no sig change 2017 The study has been interpreted contemporaneously by me. . Discharge Plan Discharge Clinical Impression: Atypical chest pain, Medical non-compliance, Acute hyperglycemia Patient Disposition: Home, Self-Care Instructions: Chest Pain (ED), Diabetes and Nutrition (ED) Additional Instructions: return to ED for any worsening symptoms or concerns blood sugar 186 in ED negative workup for blood clots and negative EKG at this time FOLLOW UP WITH YOUR DIABETES DOCTOR ([employer]) Prescriptions: New cyclobenzaprine 10 mg tablet 10 mg PO TID PRN (Reason: muscle spasm) Qty: 14 RF: 0 No Action lancets [TRUEplus Lancets] 33 gauge misc 1 gauge miscellaneous QID 30 Days Qty: 100 RF: 11 metoclopramide HCl [Reglan] 10 mg tablet 10 mg PO Q6H PRN (Reason: nausea and vomiting) Qty: 14 RF: 0 metoclopramide HCl [Reglan] 10 mg tablet 10 mg PO Q6H PRN (Reason: nausea and vomiting) Qty: 14 RF: 0 aspirin 81 mg tablet,delayed release (DR/EC) 81 mg PO DAILY RF: 0 pantoprazole 20 mg tablet,delayed release (DR/EC) 20 mg PO BID Qty: 30 RF: 6 omeprazole 20 mg capsule,delayed release(DR/EC) 20 mg PO DAILY RF: 0 (DME) lancets [FreeStyle Lancets] 28 gauge misc See Rx Instructions .ROUTE .MEDSUPPLY Qty: 100 RF: 0 (DME) pen needle, diabetic [Comfort EZ Pen Tunas] 32 gauge x 1/4 needle See Rx Instructions .ROUTE .MEDSUPPLY Qty: 50 RF: 0 gabapentin 100 mg capsule 100 mg PO BEDTIME RF: 0 metformin 500 mg tablet extended release 24 hr 1,000 mg PO BID 30 Days Qty: 120 RF: 11 lisinopril 2.5 mg tablet 2.5 mg PO DAILY 30 Days Qty: 30 RF: 11 Lantus Solostar U-100 Insulin 100 unit/mL (3 mL) insulin pen 40 unit subcut DAILY RF: 0 (DME) pen needle, diabetic [BD Ultra-Fine Micro Pen Needle] 32 gauge x 1/4 needle See Rx Instructions .ROUTE .MEDSUPPLY Qty: 100 RF: 11 (DME) blood-glucose meter [FreeStyle Lite Meter] Kit See Rx Instructions .ROUTE .MEDSUPPLY Qty: 1 RF: 0 (DME) FreeStyle Lite Strips Strip See Rx Instructions .ROUTE .MEDSUPPLY Qty: 100 RF: 11 atorvastatin 80 mg tablet 80 mg PO BEDTIME 30 Days Qty: 30 RF: 11 cholecalciferol (vitamin D3) 50 mcg (2,000 unit) capsule 50 mcg PO DAILY 30 Days Qty: 30 RF: 11 Print Language: Burkinan
[2020-07-21] MEDS: Cyclobenzaprine HCl 10 MG TABLET PO (14:31)
[2020-07-21 14:32] LABS: MANUAL DIFF FLAG NO
[2020-07-21] MEDS: 0.9 % Sodium Chloride 1,000 ML 999 ML IVCONT (14:32)
[2020-07-21 14:35] LABS: Basophils Percent Auto 0.3 % (0-2); Eosinophils Absolute Auto 0.1 X10*3/uL (0.0-0.4); Eosinophils Percent Auto 1.3 % (0-4); Hematocrit 40.6 % (37-47); Hemoglobin 13.7 g/dl (12.0-16.0); Imm Gran Abs Auto 0.01 X10*3/uL (0.00-0.03); Imm Gran Pct Auto 0.1 % (0.0-0.4); Lymphocytes Absolute Auto 3.8 X10*3/uL (1.2-4.9); Lymphocytes Percent Auto 51.3 % (20-40); Mean Corpuscular HGB Conc 33.7 g/dl (31.0-35.0); Mean Platelet Volume 9.6 fL (9.4-12.3); Monocytes Absolute Auto 0.5 X10*3/uL (0.1-1.2); Monocytes Percent Auto 6.4 % (2-11); Neutrophils Percent Auto 40.6 % (45-73); Platelet Count 326 X10*3/uL (160-400); Red Blood Count 4.72 X10*6/uL (4.20-5.50); White Blood Count 7.5 X10*3/uL (4.8-10.8)
[2020-07-21 14:38] LABS: VBG Base Excess 1.5 mmol/L; VBG HCO3 29 mmol/L (22-26); VBG pCO2 58 mmHg; VBG pO2 38 mmHg
[2020-07-21 14:44] LABS: D Dimer < 200 NG/ML
[2020-07-21 14:46] LABS: Venous Blood Gas Refer to POC result
[2020-07-21 15:18] LABS: Troponin-I High Sensitivity < 3.5 ng/L (<3.5-17.0)
[2020-07-21 15:21] VITALS: BP 131/91; PULSE 76; RESP 18; TEMP 36.5; O2SAT 98
[2020-07-21 16:00] LABS: Glucose Urine UA >=1000 MG/DL (NEG); Leukocyte Esterase Urine NEG (NEG); Nitrite Urine NEG (NEG); Urine Blood NEG (NEG); Urine Ketones NEG (NEG); Urine Protein NEG (NEG-TRACE)
[2020-07-21 16:02] LABS: Appearance Urine CLEAR; Color Urine YELLOW
[2020-07-21 16:16] LABS: Mucus Urine TRACE /LPF; RBC Urine 0 /HPF (0); Renal Epithelial Cells Urine TRACE /LPF; Squamous Epithelial Cell Urine 1+ /LPF; WBC Urine 0 /HPF (0-4)
[2020-07-21 16:17] LABS: Alanine Aminotransferase 10 U/L (0-31); Albumin Level 4.3 g/dL (3.5-5.0); Alkaline Phosphatase 111 U/L (39-117); Anion Gap 11 (12-20); Aspartate Amino Transferase 14 U/L (5-31); Bilirubin Direct 0.3 mg/dL (0.0-0.5); Bilirubin Total 0.9 mg/dL (0.0-1.0); Blood Urea Nitrogen 12 mg/dL (9-16); Calcium 9.8 mg/dL (8.4-10.2); Carbon Dioxide 28 mmol/L (22-29); Chloride 101 mmol/L (96-108); Creatinine Clr Calc Pharmacy 78.5; Estimated Glomerular Filt Rate > 60; Glucose Random 186 mg/dL (60-115); Lipase 14 U/L (8-78); Magnesium 1.9 mg/dL (1.6-2.6); Potassium 3.9 mmol/L (3.3-5.1); Sodium 136 mmol/L (135-145); Total Protein 7.5 g/dL (6.5-8.0)
[2020-07-21 16:36] VITALS: BP 126/76; PULSE 78; RESP 18; O2SAT 98
[2020-07-21 17:24] LABS: Acetone, serum QL Negative (Negative)
== END 2020-07-21 16:37 | disposition home or self-care (01) ==
PROVIDERS: Emergency Provider Emergency Medicine; PCP Internal Medicine
DX: R07.89 Other chest pain (principal); E11.65 Type 2 diabetes mellitus with hyperglycemia; I10 Essential (primary) hypertension; Z79.4 Long term (current) use of insulin; Z79.82 Long term (current) use of aspirin; Z79.899 Other long term (current) drug therapy; Z91.14 Patient's other noncompliance with medication regimen
CPT/HCPCS: 36415; 71045; 80048; 80076; 81001; 81003; 82009; 83690; 83735; 84484; 85025; 85379; 93005; 96360; 99284

== ENCOUNTER → 2020-07-28 14:42 | Outpatient (BNVA) | payer MEDICAID, SELFPAY | PROVIDERS: PCP Internal Medicine; Visit Provider Orthopaedic Surgery | DX: M65.331 Trigger finger, right middle finger (principal); M65.332 Trigger finger, left middle finger; M65.4 Radial styloid tenosynovitis [de Quervain]; G56.03 Carpal tunnel syndrome, bilateral upper limbs | CPT/HCPCS: 20550; 99212; J1100 ==

== ENCOUNTER → 2020-07-30 10:02 | Outpatient (BNVA) | payer MEDICAID, SELFPAY | PROVIDERS: PCP Internal Medicine; Visit Provider Dietitian, Registered | DX: E11.65 Type 2 diabetes mellitus with hyperglycemia (principal); Z79.4 Long term (current) use of insulin | CPT/HCPCS: 97803 ==

== ENCOUNTER → 2020-09-09 11:12 | Outpatient (BNVA) | payer MEDICAID, SELFPAY | PROVIDERS: PCP Internal Medicine; Visit Provider Internal Medicine ==

== ENCOUNTER → 2020-09-10 10:07 | Outpatient (BNVA) | payer MEDICAID, SELFPAY | PROVIDERS: PCP Internal Medicine; Visit Provider Dietitian, Registered | DX: E11.65 Type 2 diabetes mellitus with hyperglycemia (principal); Z79.4 Long term (current) use of insulin | CPT/HCPCS: 97803 ==

== ENCOUNTER → 2020-12-10 08:57 | Outpatient (BNVA) | payer MEDICAID, SELFPAY | PROVIDERS: PCP Internal Medicine; Visit Provider Dietitian, Registered | DX: E11.65 Type 2 diabetes mellitus with hyperglycemia (principal); Z79.4 Long term (current) use of insulin | CPT/HCPCS: 97803 ==

== ENCOUNTER → 2021-02-21 07:54 | Outpatient (BNVA) | payer MEDICAID, SELFPAY | PROVIDERS: PCP Internal Medicine; Visit Provider Internal Medicine ==

== ENCOUNTER → 2021-03-03 13:42 | Outpatient (BNVA) | payer MEDICAID, SELFPAY | PROVIDERS: PCP Internal Medicine; Visit Provider Dietitian, Registered | DX: E11.65 Type 2 diabetes mellitus with hyperglycemia (principal); Z79.4 Long term (current) use of insulin | CPT/HCPCS: 97803 ==

== ENCOUNTER → 2021-03-16 09:00 | Outpatient (BNVA) | payer MEDICAID, SELFPAY | PROVIDERS: PCP Internal Medicine; Visit Provider Registered Nurse Diabetes Educator | DX: E11.65 Type 2 diabetes mellitus with hyperglycemia (principal); Z79.4 Long term (current) use of insulin; Z79.84 Long term (current) use of oral hypoglycemic drugs | CPT/HCPCS: 99211 ==

== ENCOUNTER → 2021-05-02 13:28 | Outpatient (BNVA) | payer MEDICAID, SELFPAY | PROVIDERS: PCP Internal Medicine; Visit Provider Dietitian, Registered | DX: E11.65 Type 2 diabetes mellitus with hyperglycemia (principal); Z79.4 Long term (current) use of insulin | CPT/HCPCS: 97803 ==

== ENCOUNTER 2021-05-04 09:05 | Outpatient (REF) | payer MEDICAID, SELFPAY ==
[2021-05-04 10:56] LABS: Creatinine Urine 117.31 mg/dL; Microalbum/Creatinine Ratio Ur 5.9 ug/mg cr
[2021-05-04 10:58] LABS: Estimated Average Glucose 298 mg/dL
[2021-05-04 11:00] LABS: Alanine Aminotransferase 13 U/L (0-31); Albumin Level 3.7 g/dL (3.5-5.0); Alkaline Phosphatase 90 U/L (39-117); Anion Gap 11 (12-20); Aspartate Amino Transferase 14 U/L (5-31); Bilirubin Total 0.7 mg/dL (0.0-1.0); Blood Urea Nitrogen 10 mg/dL (9-16); Carbon Dioxide 27 mmol/L (22-29); Chloride 106 mmol/L (96-108); Cholesterol 260 mg/dL; Estimated Glomerular Filt Rate > 60; Glucose Random 119 mg/dL (60-115); HDL Cholesterol 53 mg/dL; LDL Cholesterol Calculated 186 mg/dl; Potassium 4.3 mmol/L (3.3-5.1); Sodium 140 mmol/L (135-145); Total Protein 6.6 g/dL (6.5-8.0); Triglycerides 106 mg/dL
[2021-05-05 14:32] LABS: Vitamin D 25-OH Total 29.9 ng/mL (>30)
[2021-05-06 00:31] LABS: LDL Cholesterol Direct 201 mg/dL (<100)
== END 2021-05-04 09:06 | disposition home or self-care (01) ==
LOC: HO.10HDL 09:05
PROVIDERS: Visit Provider Internal Medicine
DX: E11.65 Type 2 diabetes mellitus with hyperglycemia (principal); E55.9 Vitamin D deficiency, unspecified; Z79.4 Long term (current) use of insulin
CPT/HCPCS: 36415; 80053; 80061; 82043; 82306; 83036; 83721

== ENCOUNTER → 2021-05-05 12:46 | Outpatient (BNVA) | payer MEDICAID, SELFPAY | PROVIDERS: PCP Internal Medicine; Visit Provider Internal Medicine | DX: E11.65 Type 2 diabetes mellitus with hyperglycemia (principal); I10 Essential (primary) hypertension; E78.5 Hyperlipidemia, unspecified; Z79.4 Long term (current) use of insulin; Z79.899 Other long term (current) drug therapy | CPT/HCPCS: 82947; 99212 ==

== ENCOUNTER 2021-05-19 14:54 | Outpatient (RCR) | payer MEDICAID, SELFPAY | END 2021-06-29 13:59 | disposition home or self-care (01) | LOC: HO.OT 14:54 | PROVIDERS: PCP Internal Medicine; Visit Provider Internal Medicine | DX: M65.342 Trigger finger, left ring finger (principal) | CPT/HCPCS: 29125; 97166; 97760 ==

== ENCOUNTER → 2021-07-25 13:51 | Outpatient (BNVA) | payer MEDICAID, SELFPAY | PROVIDERS: PCP Internal Medicine; Visit Provider Dietitian, Registered | DX: E11.65 Type 2 diabetes mellitus with hyperglycemia (principal); Z79.4 Long term (current) use of insulin; Z71.3 Dietary counseling and surveillance | CPT/HCPCS: 97803 ==

== ENCOUNTER 2021-12-06 10:32 | Outpatient (REF) | payer MEDICAID, SELFPAY ==
--- NOTE | ~2021-12-06 | XR_ITS ---
EXAMINATION: XR KNEE, RIGHT XR KNEE, LEFT CLINICAL INFORMATION: Bilateral knee pain. COMPARISON: None TECHNIQUE: Right knee is imaged in 4 views. Left knee is imaged in 5 views. There are a total of 9 views. FINDINGS: Right: No fracture, dislocation, or suprapatellar effusion. Hoffa's fat pad appears normal. No joint narrowing or erosive change or chondrocalcinosis. Axial view patella shows no lateralization or tilting. There is spurring at the quadriceps insertion patella. Left: No fracture, dislocation, or suprapatellar effusion. Hoffa's fat pad appears normal. No joint narrowing or erosive change or chondrocalcinosis. Axial view patella shows no lateralization or tilting. There is spurring at the quadriceps insertion patella. XR/XR knee RT 4V IMPRESSION: -Bilateral: Spurring bilateral quadriceps insertion patella. No lateralization or tilting. -Bilateral: No joint narrowing or erosive change or chondrocalcinosis. No effusion
--- NOTE | ~2021-12-06 | XR_ITS ---
EXAMINATION: XR KNEE, RIGHT XR KNEE, LEFT CLINICAL INFORMATION: Bilateral knee pain. COMPARISON: None TECHNIQUE: Right knee is imaged in 4 views. Left knee is imaged in 5 views. There are a total of 9 views. FINDINGS: Right: No fracture, dislocation, or suprapatellar effusion. Hoffa's fat pad appears normal. No joint narrowing or erosive change or chondrocalcinosis. Axial view patella shows no lateralization or tilting. There is spurring at the quadriceps insertion patella. Left: No fracture, dislocation, or suprapatellar effusion. Hoffa's fat pad appears normal. No joint narrowing or erosive change or chondrocalcinosis. Axial view patella shows no lateralization or tilting. There is spurring at the quadriceps insertion patella. XR/XR knee LT 4V IMPRESSION: -Bilateral: Spurring bilateral quadriceps insertion patella. No lateralization or tilting. -Bilateral: No joint narrowing or erosive change or chondrocalcinosis. No effusion
== END 2021-12-06 10:33 | disposition home or self-care (01) ==
LOC: HO.XRAY 10:32
PROVIDERS: PCP Internal Medicine; Visit Provider Internal Medicine
DX: M25.561 Pain in right knee (principal); M25.562 Pain in left knee
CPT/HCPCS: 73564

== ENCOUNTER → 2022-02-14 13:54 | Outpatient (BNVA) | payer MEDICAID, SELFPAY | PROVIDERS: PCP Internal Medicine; Visit Provider Orthopaedic Surgery | DX: M65.331 Trigger finger, right middle finger (principal); M65.332 Trigger finger, left middle finger; M65.322 Trigger finger, left index finger; G56.01 Carpal tunnel syndrome, right upper limb; G56.02 Carpal tunnel syndrome, left upper limb; M65.4 Radial styloid tenosynovitis [de Quervain]; E11.65 Type 2 diabetes mellitus with hyperglycemia; I10 Essential (primary) hypertension; E78.5 Hyperlipidemia, unspecified; E55.9 Vitamin D deficiency, unspecified; Z79.4 Long term (current) use of insulin | CPT/HCPCS: 99212 ==